=== PATIENT | male | born 1950 | race Caucasian/White ===

== ENCOUNTER 2019-08-05 13:12 | Day surgery (SDC) | payer MEDICARE ==
[~2019-08-05] VITALS: Ht 177.8 cm; Wt 71.6 kg
[2019-08-05] MEDS ORDERED: LIDOCAINE-MPF 1%, 5ML ONE (13:34)
--- NOTE | 2019-08-05 13:34 | NUR ---
TASK RN: PA ASKED FOR 2 5ML LIDOCAINE MEDICATION VIALS. RN PULLED FROM [facility] FOR PA. DIMITRI RN PROVIDED PA WITH MEDICATION.
--- NOTE | 2019-08-05 13:45 | NUR ---
FIRST CONTACT WITH PT. PT PRESENTED TO ED D/T LEFT INDEX AND MIDDLE FINGER LACERATION DUE TO A TABLE SAW. TOWEL WRAPPED AROUND PT'S LEFT HAND. BLOOD NOTED. HX OF HEMOPHILIA. PT'S AOX4. RESPS EVEN AND UNLABORED. PA ATBEDSIDE TO EVALUATE AT THIS TIME.
[2019-08-05] MEDS ORDERED: CEFAZOLIN 1,000 MG ONE (13:53)
[2019-08-05] MEDS ORDERED: CEFAZOLIN 1,000 MG IM ONE (14:00)
--- NOTE | 2019-08-05 14:05 | NUR ---
PT MEDICATED PER EMAR. PT TOLERATED WELL.
[2019-08-05 15:03] VITALS: BP 153/87
--- NOTE | 2019-08-05 15:04 | NUR ---
PT RESTING IN [facility]. PT'S AOX4. RESPS EVEN AND UNLABORED. PT STATES "I DON'T NEED PAIN MEDS." CALL LIGHT WITHIN REACH.
[2019-08-05] MEDS ORDERED: SODIUM CHLORIDE 0.9% 1,000 ML IV ONE (15:05)
--- NOTE | 2019-08-05 15:26 | NUR ---
PIV EST ON L AC WITH NO COMPLICATIONS. NS INFUSING AT THIS TIME.
[2019-08-05] MEDS ORDERED: SODIUM CHLORIDE FLUSH 10ML SYR IVF ONE (15:30)
--- NOTE | 2019-08-05 15:35 | NUR ---
REPORT GIVEN TO HIDE PULLER. ALL QUESTIONS ANSWERED.
[2019-08-05 15:36] LABS: BASOPHILS # (AUTO) 0.01 x10^3/uL (0-0.1); BASOPHILS % (AUTO) 0 % (0-1); EOSINOPHILS # (AUTO) 0.03 x10^3/uL (0-0.4); EOSINOPHILS % (AUTO) 0 % (1-7); LYMPHOCYTES # (AUTO) 0.85 x10^3/uL (1-3.4); LYMPHOCYTES % (AUTO) 11 % (22-44); MD NO; MEAN CORPUSCULAR HEMOGLOBIN 30.5 pg (27.5-34.5); MEAN CORPUSCULAR HGB CONC 34.1 g/dL (33.2-36.2); MEAN CORPUSCULAR VOLUME 89.6 fL (81-97); MEAN PLATELET VOLUME 6.6 fL (7.4-10.4); MONOCYTES # (AUTO) 0.25 x10^3/uL (0.2-0.8); MONOCYTES % (AUTO) 3 % (2-9); NEUTROPHILS # (AUTO) 6.98 x10^3/uL (1.8-6.8); NEUTROPHILS % (AUTO) 86 % (42-75); PLATELET COUNT 261 x10^3/uL (130-400); RED BLOOD COUNT 4.89 x10^6/uL (4.38-5.82); RED CELL DISTRIBUTION WIDTH 14.6 % (9.4-14.8)
[2019-08-05 15:46] LABS: ALBUMIN 4.1 g/dL (3.4-5.0); ANION GAP 8 mmol/L (5-15); CALCIUM 8.9 mg/dL (8.5-10.1); CHLORIDE 109 mmol/L (98-107); CREATININE 1.08 mg/dL (0.7-1.3)
[2019-08-05] MEDS ORDERED: FENTANYL PF 250 MCG/5ML ONE (15:51)
[2019-08-05] MEDS ORDERED: PROPOFOL 10 MG/ML, 20ML ONE (15:53)
[2019-08-05] MEDS ORDERED: DEXAMETHASONE 4 MG/ML, 1ML ONE (16:08)
[2019-08-05] MEDS ORDERED: SUCCINYLCHOLINE 20 MG/ML, 10ML ONE (16:08)
[2019-08-05] MEDS ORDERED: ONDANSETRON 2MG/ML, 2ML ONE (16:08)
[2019-08-05] MEDS ORDERED: MIDAZOLAM 1 MG/ML, 2ML ONE (16:26)
[2019-08-05 16:36] LABS: INTERNATIONAL NORMALIZED RATIO 1.07 (0.93-1.1); PROTHROMBIN TIME 11.3 Seconds (9.6-11.5)
[2019-08-05] MEDS ORDERED: BUPIVACAINE/PF 0.25% INFIL ONE (17:00)
[2019-08-05] MEDS ORDERED: LABETALOL 5MG/ML, 20ML IV PRN (17:30)
[2019-08-05] MEDS ORDERED: FENTANYL PF 100 MCG/2ML IV PRN (17:30)
[2019-08-05] MEDS ORDERED: HYDROmorphone 2 MG/ML, 1ML IVPush PRN (17:30)
[2019-08-05] MEDS ORDERED: OXYcodone 5 MG/5 ML ORAL.SOL UDC PO PRN (17:30)
[2019-08-05] MEDS ORDERED: MEPERIDINE/PF 25MG/ML,1ML IVPush PRN (17:30)
[2019-08-05] MEDS ORDERED: PROMETHAZINE 12.5 MG SUPP PR PRN (17:30)
[2019-08-05] MEDS ORDERED: ONDANSETRON 2MG/ML, 2ML IV PRN (17:30)
[2019-08-05] MEDS ORDERED: HALOPERIDOL 5 MG/ML IV PRN (17:30)
[2019-08-05] MEDS ORDERED: ACETAMINOPHEN 325 MG TABLET PO PRN (17:30)
[2019-08-05] MEDS ORDERED: ONDANSETRON ODT 8 MG PO PRN (17:30)
[2019-08-05] MEDS ORDERED: ALBUTEROL SULFATE 2.5 MG/3 ML NPPB PRN (17:30)
[2019-08-05] MEDS ORDERED: DIAZEPAM 5 MG/ML, 2ML IVPush PRN (17:30)
[2019-08-05] MEDS ORDERED: MIDAZOLAM 1 MG/ML, 2ML IV PRN (17:30)
[2019-08-05] MEDS ORDERED: PROMETHAZINE 25 MG/ML, 1ML IV PRN (17:30)
== END 2019-08-05 18:40 | disposition home or self-care (01) ==
LOC: ED 14:45 → EDIP 15:14 → UNDOADMOB 15:14 → OUT 15:14 → UNDODISOB 18:40 → ED 18:40 → EDSTATUS 22:47
PROVIDERS: ATTEND Emergency Medicine
DX: S62.631B Displaced fracture of distal phalanx of left index finger, initial encounter for open fracture (principal); S61.213A Laceration without foreign body of left middle finger without damage to nail, initial encounter; D67 Hereditary factor IX deficiency; Z79.899 Other long term (current) drug therapy; Z90.49 Acquired absence of other specified parts of digestive tract; W31.2XXA Contact with powered woodworking and forming machines, initial encounter; Y93.89 Activity, other specified; Y99.8 Other external cause status; Y92.098 Other place in other non-institutional residence as the place of occurrence of the external cause
CPT/HCPCS: 11012; 11044; 26765; 36415; 71045; 73140; 80048; 82040; 85025; 85610; 93005; 96372; 99285; C1713; J0330; J0690; J1100; J2250; J2405; J2704; J3010; J3490; J7030; 76000; G0378